=== PATIENT | female | born 1975 | race Hispanic/Latino ===

== ENCOUNTER 2020-09-26 20:05 | Emergency (ER) | payer OTHER ==
[~2020-09-26] VITALS: Ht 157.5 cm; Wt 107.0 kg
[~2020-09-26 20:05] MED LIST: AMOXICILLIN250 MG PO
[2020-09-26] MEDS ORDERED: IBUPROFEN 600 MG TAB PO STA (20:49)
[2020-09-26] MEDS ORDERED: ACETAMINOPHEN 325 MG TAB PO ONE (21:00)
[2020-09-26] MEDS ORDERED: IBUPROFEN 600 MG TAB ONE (21:01)
[2020-09-26] MEDS ORDERED: ACETAMINOPHEN 325 MG TAB ONE (21:02)
[2020-09-26 21:16] LABS: CLARITY,URINE SL CLOUDY (CLEAR); COLOR,URINE STRAW (YELLOW); KETONES,URINE TRACE (NEGATIVE); LEUKOCYTE ESTERASE ,URINE NEGATIVE (NEGATIVE); NITRITE,URINE NEGATIVE (NEGATIVE); PROTEIN,URINE DIPSTICK 2+ (NEGATIVE); URINE UROBILINOGEN 2 mg/dL (0.2 - 1)
[2020-09-26 21:28] LABS: BACTERIA,URINE MODERATE /HPF; EPITHELIAL CELLS,URINE FEW /LPF; RBC,URINE 0-5 /HPF (0-5); TRANSITIONAL EPI CELLS,URINE FEW
[2020-09-26] MEDS ORDERED: CEPHALEXIN500 MG PO (21:37)
== END 2020-09-26 21:45 | disposition home or self-care (01) ==
LOC: ER 20:50
DX: U07.1 COVID-19 (principal); R50.9 Fever, unspecified; N39.0 Urinary tract infection, site not specified; E78.5 Hyperlipidemia, unspecified; N80.9 Endometriosis, unspecified
CPT/HCPCS: 81001; 87086; 99283